=== PATIENT | male | born 1955 | race Caucasian/White ===

== ENCOUNTER 2023-06-05 19:17 | Emergency (ER) | payer OTHER ==
[~2023-06-05] VITALS: Ht 185.4 cm; Wt 90.7 kg
[2023-06-05 19:40] VITALS: TEMP 98.7
[2023-06-05] MEDS ORDERED: ACETAMINOPHEN ES 500 MG TABLET ONE (19:58)
[2023-06-05] MEDS ORDERED: TDAP [DIPH/PERTUSSIS/TET] 0.5 ML VIAL IM ONE (19:59)
[2023-06-05] MEDS: ACETAMINOPHEN 325 MG TABLET PO ONE (20:19)
[2023-06-05] MEDS: TDAP [DIPH/PERTUSSIS/TET] 0.5 ML VIAL IM ONE (20:20)
[2023-06-05 21:53] VITALS: BP 148/98; O2SAT 99
== END 2023-06-05 21:53 | disposition home or self-care (01) ==
LOC: ER 19:19
DX: S00.31XA Abrasion of nose, initial encounter (principal); S60.811A Abrasion of right wrist, initial encounter; S80.211A Abrasion, right knee, initial encounter; R51.9 Headache, unspecified; Z60.2 Problems related to living alone; W18.39XA Other fall on same level, initial encounter; Y93.89 Activity, other specified; Y92.89 Other specified places as the place of occurrence of the external cause; Y99.8 Other external cause status
CPT/HCPCS: 70450-TC; 70486-TC; 73130-TC; 73564-TC; 90715